=== PATIENT | male | born 1950 ===

== ENCOUNTER 2025-06-07 15:23 | Inpatient (IN) | payer OTHER ==
[~2025-06-07] VITALS: Ht 182.9 cm; Wt 71.6 kg
[2025-06-07 16:12] LABS: PLATELET COUNT (AUTO) 150 K/uL (150-450); RED BLOOD CELL COUNT(AUTO) 4.50 MIL/uL (4.50-5.90); RED CELL DISTRIBUTION WIDTH 18.0 % (11.5-14.5); WHITE BLOOD COUNT (AUTO) 4.3 K/uL (4.5-11.0)
[2025-06-07 16:28] LABS: CALCIUM, TOTAL 8.6 mg/dL (8.8-10.5); CREATININE 1.02 mg/dL (0.60-1.30); GLOMERULAR FILTR. RATE CALC > 60 mL/min (>60); GLUCOSE,RANDOM 87 mg/dL (70-110); SODIUM SERUM 140 mmol/L (136-145); UREA NITROGEN, BLOOD 29 mg/dL (7-18)
[2025-06-07 16:29] LABS: ASPARTATE AMINOTRANSFERASE 59.0 U/L (15-37); TOTAL PROTEIN, SERUM 7.5 g/dL (6.4-8.2)
[2025-06-07 16:38] LABS: TROPONIN I-HIGH SENSITIVITY 6 ng/L (<76)
[2025-06-07] MEDS ORDERED: 0.9% SODIUM CHLORIDE 5 ML NEB SOLUTION NEB ONE (17:13)
[2025-06-07] MEDS: INSULIN REGULAR, HUMAN 100 UNITS/ML IVP ONE (17:13)
[2025-06-07 17:15] VITALS: PULSE 85; RESP 20; O2SAT 92
[2025-06-07] MEDS ORDERED: ALBUTEROL SULFATE 2.5 MG/0.5 ML NEB SOLUTION NEB PRN (17:15)
[2025-06-07] MEDS: DEXTROSE 50%-WATER 25 GM/50 ML SYRINGE IVP ONE (17:15)
[2025-06-07] MEDS ORDERED: ZOLPIDEM TARTRATE 5 MG TABLET PO PRN (17:15)
[2025-06-07] MEDS: CALCIUM GLUCONATE 1,000 MG in DEXTROSE 5%-WATER 50 ML IV ONE (17:15)
[2025-06-07] MEDS ORDERED: ONDANSETRON HCL 4 MG/2 ML VIAL IVP PRN (17:15)
[2025-06-07] MEDS ORDERED: MAGNESIUM HYDROXIDE SUSPENSION 30 ML UDCUP PO PRN (17:15)
[2025-06-07] MEDS ORDERED: ACETAMINOPHEN 325 MG TABLET PO PRN (17:15)
[2025-06-07] MEDS: SODIUM ZIRCONIUM CYCLOSILICATE 10 GM POWDER PACKET PO ONE (17:15)
[2025-06-07] MEDS: ALBUTEROL SULFATE 2.5 MG/0.5 ML 5 ML NEB SOLUTION NEB ONE (17:16)
[2025-06-07 17:30] VITALS: PULSE 84; RESP 20; O2SAT 99
[2025-06-07] MEDS: SODIUM CHLORIDE 0.9% 1,000 ML IV ONE (18:32)
[2025-06-07 21:54] VITALS: BP 127/86; PULSE 102; RESP 18; TEMP 98.8; O2SAT 98
[2025-06-07 23:56] VITALS: BP 122/85; PULSE 88; RESP 18; TEMP 98.4; O2SAT 97
[2025-06-08] MEDS: HEPARIN SODIUM,PORCINE 5,000 UNITS/ML VIAL SQ SCH
[2025-06-08 05:01] VITALS: BP 114/83; PULSE 71; RESP 18; TEMP 98.4; O2SAT 96
[2025-06-08 06:33] LABS: PLATELET COUNT (AUTO) 138 K/uL (150-450); RED BLOOD CELL COUNT(AUTO) 4.01 MIL/uL (4.50-5.90); RED CELL DISTRIBUTION WIDTH 17.4 % (11.5-14.5); WHITE BLOOD COUNT (AUTO) 5.7 K/uL (4.5-11.0)
[2025-06-08 07:49] LABS: CALCIUM, TOTAL 7.7 mg/dL (8.8-10.5); CREATININE 0.73 mg/dL (0.60-1.30); GLOMERULAR FILTR. RATE CALC > 60 mL/min (>60); GLUCOSE,RANDOM 103 mg/dL (70-110); SODIUM SERUM 143 mmol/L (136-145); UREA NITROGEN, BLOOD 22 mg/dL (7-18)
[2025-06-08] MEDS: FAMOTIDINE 20 MG TABLET PO SCH (08:02)
[2025-06-08 08:22] VITALS: BP 128/81; PULSE 72; RESP 16; TEMP 98.2; O2SAT 96
[2025-06-08 12:01] VITALS: BP 109/77; PULSE 72; RESP 16; TEMP 98.4; O2SAT 98
[2025-06-08 15:59] VITALS: BP 104/68; PULSE 71; RESP 19; TEMP 98.2; O2SAT 97
[2025-06-08 20:00] VITALS: BP 111/77; PULSE 83; RESP 18; TEMP 98.2; O2SAT 97
[2025-06-09] VITALS: BP 118/68; PULSE 62; RESP 16; TEMP 98.1; O2SAT 97
[2025-06-09 04:26] VITALS: BP 116/66; PULSE 66; RESP 18; TEMP 97.7; O2SAT 95
[2025-06-09 08:19] VITALS: BP 115/81; PULSE 64; RESP 18; TEMP 98; O2SAT 95
[2025-06-09 11:34] VITALS: BP 114/73; PULSE 63; RESP 17; TEMP 98.1; O2SAT 97
[2025-06-09 15:47] VITALS: BP 127/80; PULSE 65; RESP 18; TEMP 98; O2SAT 96
== END 2025-06-09 18:45 | DRG 312 ==
LOC: EMS 15:48 → EDH 17:12 → 5S 21:35
PROVIDERS: ADMIT Internal Medicine; ATTEND Internal Medicine
DX: R55 Syncope and collapse (principal); E87.5 Hyperkalemia; F20.9 Schizophrenia, unspecified; F31.9 Bipolar disorder, unspecified; R09.02 Hypoxemia; I95.9 Hypotension, unspecified
CPT/HCPCS: 71045; 80048; 80076; 83880; 84132; 84484; 85025; 85610; 85730; 93005; 94640; 96361; 96374; 96375; 97116; 97162; 97530; 99291; J0610; J1644; J1815; J7060; 36415-L1; 36415-TC